=== PATIENT | female | born 1965 | race African-American/Black ===

== ENCOUNTER 2021-12-29 09:46 | Emergency (ER) | payer OTHER ==
[~2021-12-29] VITALS: Ht 157.5 cm; Wt 64.9 kg
--- NOTE | 2021-12-29 09:50 | NUR ---
MD WHITING AT BEDSIDE FOR ASSESSMENT. AWAITING ADDITIONAL ORDERS.
--- NOTE | 2021-12-29 09:50 | NUR ---
Patient to ER bed 6 to gown for evaluation. Side rails up. Report given to PARKER JOYCE.
[2021-12-29 09:54] VITALS: BP_SYST 166
[2021-12-29] MEDS ORDERED: MORPHINE 4 MG INJ. 4 MG/ML VIAL IM ONE ×2 (10:00→11:45)
[2021-12-29 10:34] LABS: BASOPHILS % (AUTO) 0.7 % (0.0-2.0); EOSINOPHILS % (AUTO) 0.7 % (0.0-4.0); HEMATOCRIT 34.3 % (36-48); HEMOGLOBIN 11.9 g/dL (12.0-16.0); LYMPHOCYTES # (AUTO) 0.9 K/uL (1.0-5.5); LYMPHOCYTES % (AUTO) 18.4 % (20.5-51.5); MEAN CORPUSCULAR HEMOGLOBIN 32 pg (27-31); MEAN CORPUSCULAR HGB CONC 35 % (32-36); MEAN CORPUSCULAR VOLUME 91 fL (79.0-98.0); MONOCYTES # (AUTO) 0.2 K/uL (0.0-1.0); MONOCYTES % (AUTO) 4.6 % (1.7-9.3); NEUTROPHILS # (AUTO) 3.7 K/uL (1.8-7.7); NEUTROPHILS % (AUTO) 75.6 % (40.0-70.0); PLATELET COUNT (AUTO) 410 K/uL (130-430); RED BLOOD CELL COUNT(AUTO) 3.76 MIL/uL (4.2-6.2); RED CELL DISTRIBUTION WIDTH 17.8 % (9.0-15.0); WHITE BLOOD COUNT (AUTO) 4.8 K/uL (4.8-10.8)
[2021-12-29 10:42] LABS: ANION GAP 7 (5-15); CALCIUM 8.4 mg/dL (8.4-11.0); CHLORIDE 96 mmol/L (98-107); CREATININE 0.77 mg/dL (0.55-1.30); GLUCOSE 109 mg/dL (70-99); SODIUM SERUM 131 mmol/L (136-145); UREA NITROGEN, BLOOD 8 mg/dL (8-21)
[2021-12-29 10:45] LABS: GFR AFRICAN AMERICAN 99 mL/min (>90); POTASSIUM 2.8 mmol/L (3.5-5.1)
[2021-12-29 10:51] LABS: ALANINE AMINOTRANSFERASE 23 U/L (12-78); AMYLASE 39 U/L (0-100); ASPARTATE AMINOTRANSFERASE 45 U/L (10-37); C-REACTIVE PROTEIN QUANT 1.1 mg/dL (0-0.5); LIPASE 147 U/L (73-393); TOTAL BILIRUBIN 0.7 mg/dL (0.0-1.0)
[2021-12-29] MEDS ORDERED: POTASSIUM CHLORIDE 20 MEQ/PKT PACKET PO ONE ×2 (11:45→12:15)
[2021-12-29] MEDS ORDERED: fentaNYL CITRATE/PF 100 MCG/2 ML AMP IM ONE (13:15)
--- NOTE | 2021-12-29 13:47 | NUR ---
ATTEMPTED TO CALL YUNIER GUERRA , NO ANSWER. WILL ATTEMPT AGAIN IN 5 MINS.
--- NOTE | 2021-12-29 14:18 | NUR ---
ATTEMPTED TO CALL CHARLIE AGAIN, NO ANSWER. LEFT MESSAGE. AWAITING CALL BACK.
--- NOTE | 2021-12-29 14:59 | NUR ---
THIRD ATTEMPT TO REACH SON CHARLIE, NO ANSWER. LEFT A MESSAGE AGAIN. AWAITING CALL BACK. LMFT LOYD MADE AWARE OF SITUATION. PT RECEIVED MULTIPLE NARCOTICS AND SON IS ONLY AVAILABLE RIDE HOME AND ONLY KNOW NUMBER BY PATIENT. PT DID NOT BRING CELL PHONE WITH HER.
--- NOTE | 2021-12-29 16:05 | NUR ---
FOURTH ATTEMPT TO REACH YUNIER GUERRA, NO ANSWER.
[2021-12-29 18:25] VITALS: BP_SYST 147
--- NOTE | 2021-12-29 18:30 | NUR ---
Patient given written and verbal discharge instructions and verbalizes understanding. ER MD discussed with patient the results and treatment provided. Patient in stable condition. ID arm band removed. IV catheter removed intact and dressing applied, no active bleeding. NO Rx of given. Patient educated on pain management and to follow up with PMD. Pain Scale 0. Opportunity for questions provided and answered. Medication side effect fact sheet provided.
== END 2021-12-29 18:25 | disposition home or self-care (01) ==
LOC: SED 09:46
DX: R10.33 Periumbilical pain (principal); Z88.1 Allergy status to other antibiotic agents; Z88.6 Allergy status to analgesic agent; Z88.8 Allergy status to other drugs, medicaments and biological substances; Z88.9 Allergy status to unspecified drugs, medicaments and biological substances; Z79.899 Other long term (current) drug therapy
CPT/HCPCS: 36415; 74176; 76376; 80053; 82150; 83605; 83690; 84484; 85025; 86140; 96374; 96375; 96376; 99284; J2270; J3010